=== PATIENT | female | born 1990 | race Caucasian/White ===

== ENCOUNTER 2021-07-14 11:56 | Emergency (ER) | payer BC, SELFPAY ==
[2021-07-14 12:00] VITALS: BP 116/74; PULSE 96; RESP 20; TEMP 36.7; O2SAT 100
--- NOTE | 2021-07-14 13:07 | PC.NURSE ---
Pressure irrigated with sterile saline, about 40ml, patient tolerated well.
--- NOTE | 2021-07-14 14:23 | ED.WOUNDLAC ---
HPI - Wound/Laceration General Chief Complaint: Wound/Laceration Stated Complaint: laceration to chin Time Seen by Provider: 07/14/21 13:19 Source: patient Mode of arrival: ambulatory Limitations: no limitations History of Present Illness HPI narrative: 31-year-old female Healthy Accidentally smashed herself in the face with her weed Naresh when it got stuck as she was trying to pull it down off a wall in the garage and sustained a laceration to her lower lip on the right side Did not loosen any teeth and otherwise no jaw pain Rest tetanus years ago Related Data Home Medications Medication Instructions Recorded Confirmed levothyroxine 25 mcg PO DAILY 07/14/21 07/14/21 Allergies Allergy/AdvReac Type Severity Reaction Status Date / Time No Known Allergies Allergy Verified 07/14/21 12:02 Review of Systems ENT: Denies dysphagia and Denies epistaxis Hematologic/Lymphatic: Hematologic/Lymphatic: Denies easy bleeding PMFSH Family History Family History (Updated 11/16/17 @ 13:50 by DOCTOR UNKNOWN) Other Family history of malignant neoplasm of breast Hypertension Social History Social History Alcohol intake: current Exam Const: General: healthy appearing, no acute distress and alert Orientation/consciousness: patient oriented x3 HENMT: Head: laceration Teeth and gingiva: dentition normal Other: No loose teeth There is a laceration to the right lower lip 1.5 cm on the skin surface and about 2 cm on the mucosal surface and there is a small through and through communication Does not involve the vermilion border Eyes: EOM: EOMs intact bilaterally Neck: Neck: normal visual inspection Resp: Effort & Inspection: normal respiratory effort and not labored Neuro: General: patient oriented x3 Course Vital Signs Vital signs: Vital Signs Temperature 36.7 C 07/14/21 12:00 Pulse Rate 96 07/14/21 12:00 Respiratory Rate 07/14/21 12:00 Blood Pressure 116/74 07/14/21 12:00 Pulse Oximetry 100 07/14/21 12:00 Temperature 36.7 C 07/14/21 12:00 Pulse Rate 96 07/14/21 12:00 Respiratory Rate 20 07/14/21 12:00 Blood Pressure 116/74 07/14/21 12:00 Pulse Oximetry 100 07/14/21 12:00 Procedures Laceration Laceration 1: Date: 07/14/21 Time: 13:30 Site: lip Size (cm): 4 Description: clean Depth: [id number] Local Anesthetic: lidocaine 1% and with epi Amount of anesthesia used (mL): 2 Pre-repair: wound explored and irrigated ====== Skin Level ====== Skin layer closed with: vicryl and other Size (cm): 5-0 Number of sutures: 6 Technique: simple, interrupted ====== Subcutaneous Layer ====== Size: 5-0 ====== Muscle Layer ====== Muscle layer closed with: chromic gut Size: 5-0 Number of sutures: 1 Technique: simple, interrupted ====== Tendon Layer ====== Discharge Plan Discharge Clinical Impression: Laceration of lower lip Patient Disposition: Home, Self-Care Condition: Stable Instructions: Laceration (ED) Additional Instructions: Rinse the inner laceration with diluted hydrogen peroxide or mouthwash once or twice a day Clean the skin wound gently with soap and water and put a small amount of antibiotic ointment on 2 or 3 times a day Prescriptions: No Action levothyroxine 25 mcg tablet 25 mcg PO DAILY RF: 0 Follow-up/Referrals: Abraham Cantu MD [Primary Care Provider] - (5 to 7 days for skin suture removal if desired)
[2021-07-14] MEDS: TETANUS,DIPHTHERIA,AC PERTUSSIS ADULT (0.5 ML) BOOSTRIX (14:43)
[2021-07-14 14:46] VITALS: BP 105/56; PULSE 88; RESP 18; TEMP 36.6; O2SAT 99
== END 2021-07-14 14:46 | disposition home or self-care (01) ==
PROVIDERS: Emergency Provider Emergency Medicine; PCP Emergency Medicine
DX: S01.511A Laceration without foreign body of lip, initial encounter (principal); Z23 Encounter for immunization; W22.8XXA Striking against or struck by other objects, initial encounter
CPT/HCPCS: 12052; 90471; 90715; 99282

== ENCOUNTER 2021-08-12 12:41 | Outpatient (CLI) | payer BC, SELFPAY ==
--- NOTE | ~2021-08-12 | XR_ITS ---
EXAMINATION: XR hysterosalpingogram EXAM DATE: 08/12/2021 13:18 INDICATION: Infertility. TECHNIQUE: Hysterosalpingogram was performed by Dr. Thania Romero MD with fluoroscopic gem schmitz. Radiologist Newton Rayo M.D. was present to obtain fluoroscopic images. Pulsed dose reduction fl uoroscopy was used with fluoroscopic time of 0.1 minutes. The DAP for this procedure was 0.4 Gycm2. A total of 7 images obtained for the exam. FINDINGS: Soda Dispenser radiograph demonstrates an unremarkable pelvis. Fluoroscopic images demonstrates nor mal appearing endometrial cavity which has been cannulated. Upon injection of contrast, both fallopi an tubes opacify and are normal in appearance. There is free spillage bilaterally. Uterus is withou t evidence of synechia. IMPRESSION: Patent fallopian tubes. Reviewed, dictated and finalized at location A. IMPRESSION: Patent fallopian tubes.
== END 2021-08-12 12:42 | disposition home or self-care (01) ==
LOC: ANHIMG 12:47
PROVIDERS: PCP Emergency Medicine; Visit Provider Obstetrics & Gynecology Gynecology
DX: Z31.41 Encounter for fertility testing (principal)
CPT/HCPCS: 58340; 74740; Q9966

== ENCOUNTER → 2022-10-10 11:06 | Outpatient (CLI) | payer BC, SELFPAY ==
--- NOTE | ~2022-10-10 | US_ITS ---
EXAMINATION: US OB transvaginal DATE: 10/10/2022 11:48 INDICATION: Evaluate viability. TECHNIQUE: Real-time transabdominal and transvaginal obstetric ultrasound. FINDINGS: No prior studies for comparison. The uterus measures 7.8 x 4.3 x 6 cm. There is an intrauterine gestational sac. Yolk sac is visualize d. pole not definitely identified. Mean sac diameter measures 1.06 cm corresponding to 5 week 1 day gestation. The ovaries are within normal limits. No free fluid in the pelvis. IMPRESSION: 1. Intrauterine gestational sac containing a yolk sac corresponding to 5 week 1 day gestation (EDC ). No pole is identified yet, likely due to early gestational age. Recommend follow-up with serial quantitative beta-hCG levels and ultrasound as clinically indicated. Reviewed, dictated and finalized at location A. S SERVICE COORDINATOR IMPRESSION: 1. Intrauterine gestational sac containing a yolk sac corresponding to 5 week 1 day gestation (EDC 06/11/2023). No pole is identified yet, likely due to early gestational age. Recommend follow-up with serial quantitative beta-hCG l evels and ultrasound as clinically indicated.
== END ==
PROVIDERS: PCP Obstetrics & Gynecology Gynecology; Visit Provider Obstetrics & Gynecology Gynecology
DX: O36.80X0 Pregnancy with inconclusive fetal viability, not applicable or unspecified (principal); Z3A.01 Less than 8 weeks gestation of pregnancy
CPT/HCPCS: 76817

== ENCOUNTER → 2022-10-21 12:45 | Outpatient (CLI) | payer BC, SELFPAY ==
--- NOTE | ~2022-10-21 | US_ITS ---
Pelvic ultrasound. Clinical History: First trimester , assess viability Technique: Realtime transabdominal and transvaginal scanning of the pelvis was performed. Color flow Doppler and Doppler spectral analysis were performed. Findings: The uterus is anteverted, and contains an intrauterine gestation. [place]-rump length of 1.1 cm corresponds to an estimated gestational age of 7 weeks 1 day. heart rate is 154 bpm. The right ovary measures 3.1 x 1.9 x 3.0 cm. No significant right ovarian or adnexal mass is seen. The left ovary measures 2.5 x 1.8 x 1.4 cm. No significant left ovarian or adnexal mass is seen. Vascular flow present in both ovaries on Doppler spectral analysis. There is no evidence of free fluid in the cul de sac. Impression: Live intrauterine gestation with estimated gestational age of 7 weeks 1 day. heart rate is 154 bpm. Reviewed, dictated and finalized at [facility]. ING CARRIER Impression: Live intrauterine gestation with estimated gestational age of 7 weeks 1 day. Fe clover heart rate is 154 bpm.
== END ==
PROVIDERS: PCP Obstetrics & Gynecology Gynecology; Visit Provider Obstetrics & Gynecology Gynecology
DX: O36.80X0 Pregnancy with inconclusive fetal viability, not applicable or unspecified (principal); Z3A.01 Less than 8 weeks gestation of pregnancy
CPT/HCPCS: 76801

== ENCOUNTER 2023-06-15 10:46 | Outpatient (RCR) | payer BC, SELFPAY ==
--- NOTE | 2023-06-09 13:03 | PC.NURSE ---
1302- Dr. Whitlock notified of NST, GLORIA and EFW. Okay to discharge.
[2023-06-09 13:04] VITALS: BP 107/69
--- NOTE | ~2023-06-15 | US_ITS ---
EXAMINATION: US OB limited DATE: 06/15/2023 12:02 INDICATION: Postdates. TECHNIQUE: Real-time ultrasound of the pelvis was performed. COMPARISON: Ultrasound 06/09/2023 FINDINGS: There is a single fetus in vertex presentation. The placenta is anterior. heart rate is 141 be ats per minute (bpm). The amniotic fluid index is 12.3 cm, which is normal. IMPRESSION: 1. Single living fetus in vertex presentation. Reviewed, dictated and finalized at location A.
--- NOTE | ~2023-06-15 | US_ITS ---
EXAMINATION: US OB follow up DATE: 06/09/2023 12:39 INDICATION: Postdates. TECHNIQUE: Real-time ultrasound of the pelvis was performed. COMPARISON: Ultrasound 10/21/2022 FINDINGS: There is a single living fetus in vertex presentation. The placenta is anterior. heart rate is 138 beats per minute (bpm). The amniotic fluid index is 11.3 cm, which is normal. The following biometric data were obtained: Biparietal diameter (BPD): 9.4 cm; head circumference (HC): 34.7 cm; abdominal circumference (AC): 35 .5 cm; femur length (FL): 7.8 cm. These measurements are concordant. Estimated weight is 3788 g +/- 568 g, which correlates with the 62nd percentile when 06/08/23 is used as estimated date of delivery. As single measurements, these parameters are each equal to the following estimated gestational ages: BPD: 38 weeks 1 days. HC: 40 weeks 1 days. AC: 39 weeks 3 days. FL: 39 weeks 6 days. estimated gestational age based solely on measurements from this exam is 39 weeks 3 days +/- 2 weeks 5 days. IMPRESSION: 1. Single living fetus in vertex presentation. 2. Estimated weight is 3788 g +/- 568 g, which correlates with the 62nd percentile when 06/08/23 is used as estimated date of delivery. This date was set by ultrasound on 10/21/2022. Reviewed, dictated and finalized at location A.
[2023-06-15 11:00] VITALS: BP 116/72; PULSE 91
[2023-06-15 11:15] VITALS: BP 111/73; PULSE 94
[2023-06-15 12:20] VITALS: BP 107/69; PULSE 94
== END 2023-08-12 11:49 | disposition home or self-care (01) ==
LOC: ANHOBOP 10:46
PROVIDERS: Visit Provider Obstetrics & Gynecology
DX: O48.0 Post-term pregnancy (principal); Z3A.40 40 weeks gestation of pregnancy; Z3A.41 41 weeks gestation of pregnancy
CPT/HCPCS: 59025; 76815; 76816

== ENCOUNTER 2023-06-22 15:55 | Inpatient (IN) | payer BC, SELFPAY ==
[2023-06-22] VITALS (14 sets, daily range): BP systolic 108–138; BP diastolic 63–97; PULSE 70–84; TEMP 36.8–37.1; BMI 31.1
--- NOTE | 2023-06-22 16:38 | LDADM ---
This patient, Izzy Quintana, was admitted to Labor/Delivery/Recovery 108 on 06/22/23 at 15:55. Plans for labor, pain management and were discussed with patient. Patient/family oriented to hospital policies and general routines including ID bracelet, bed and alarms, visiting hours, pain management, procedures, bathroom and other care routines, personal items, smoking policy, room service/diet and guest tray routines, security routines, and visiting hours. Patient/Family are encouraged to report perceived risks to care and to ask questions if they do not understand what they are told or what they should do. See OBIX for further documentation.
[2023-06-22 16:39] LABS: Basophils Percent Auto 0.1 % (0.2-1.2); Eosinophils Percent Auto 0.4 % (0-4.4); Hematocrit 34.6 % (37.0-47.0); Hemoglobin 11.7 g/dL (12.0-15.0); Immature Granulocyte Absolute 0.07 K/mm3 (0.00-0.031); Immature Granulocyte Percent A 0.9 % (0-0.5); Lymphocytes Absolute Auto 2.01 K/mm3 (0.9-3.2); Lymphocytes Percent Auto 24.4 % (18.3-44.2); Mean Corpuscular HGB Conc 33.8 g/dl (32-36); Mean Corpuscular Hemoglobin 28.9 pg (26-34); Mean Corpuscular Volume 85.4 fl (80-100); Mean Platelet Volume 12.1 fl (7.4-10.4); Monocytes Absolute Auto 0.7 K/mm3 (0.1-0.6); Neutrophils Absolute Auto 5.5 K/mm3 (1.3-6.7); Neutrophils Percent Auto 66.2 % (45.5-73.1); Platelet Count Result 136 k/mm3 (150-375); Red Blood Count 4.05 M/mm3 (4.2-5.4); Red Cell Distribution Width 13.3 % (11.5-14.5); White Blood Count 8.2 K/mm3 (4.5-10.0)
[2023-06-22] MEDS: AMPICILLIN 2 GM/NS 100 ML 2 GM/100 ML BAG IVPB (17:13)
[2023-06-22] MEDS: LACTATED RINGERS 1,000 ML 125 ML IV CONT (17:13)
[2023-06-22] MEDS: DINOPROSTONE 10 MG VAG INSERT VAGINAL (17:14)
[2023-06-22] MEDS: AMPICILLIN 1 GM/NS 50 ML 1 GM/50 ML BAG IVPB (21:40)
[2023-06-22] MEDS: fentaNYL CITRATE INJ (*CRX) 100 MCG/2 ML VIAL 50 MCG IV PUSH (23:49)
[2023-06-23] VITALS (235 sets, daily range): BP systolic 98–221; BP diastolic 47–203; PULSE 54–259; RESP 18–20; TEMP 36.3–37.7; O2SAT 95–100
[2023-06-23] MEDS: AMPICILLIN 1 GM/NS 50 ML 1 GM/50 ML BAG IVPB ×3 (01:15→09:22)
[2023-06-23] MEDS: fentaNYL CITRATE INJ (*CRX) 100 MCG/2 ML VIAL IV PUSH (01:15)
--- NOTE | 2023-06-23 02:52 | WPDANESEPPF ---
Anes - Initial Pre Proc Eval Procedure: Labor epidural Date/Time: 06/23/23 02:52 Surgeon: Dm Whitlock MD Pre Op Diagnosis: Labor pain Pre Op Diagnosis: Induction of Labor Patient Data Age: 33 Gender: F Height: 1.65 m Weight: 85 kg Last Vital Signs Temp 36.3 C L 06/23/23 01:40 Pulse 71 06/23/23 02:14 BP 125/86 06/23/23 02:14 O2 Del Method Room Air 06/22/23 16:36 Allergies Allergy/AdvReac Type Severity Reaction Status Date / Time No Known Allergies Allergy Verified 07/14/21 12:02 Home Medications Medication Instructions Recorded Confirmed Type levothyroxine 50 mcg tablet 50 mcg PO DAILY 05/09/23 05/09/23 History (Synthroid) prenat.vits,qiana,rdf-dxip-pxbxv 1 tablet PO DAILY 05/09/23 06/22/23 History Laboratory Tests 06/22/23 16:18 WBC 8.2 K/mm3 (4.5-10.0) RBC 4.05 L M/mm3 (4.2-5.4) Hgb 11.7 L g/dL (12.0-15.0) Hct 34.6 L % (37.0-47.0) MCV 85.4 fl (80-100) MCH 28.9 pg (26-34) MCHC 33.8 g/dl (32-36) RDW 13.3 % (11.5-14.5) Plt Count 136 L k/mm3 (150-375) MPV 12.1 H fl (7.4-10.4) Immature Gran % (Auto) 0.9 H % (0-0.5) Neut % (Auto) 66.2 % (45.5-73.1) Lymph % (Auto) 24.4 % (18.3-44.2) [place] % (Auto) 8.0 % (2.6-8.5) Eos % (Auto) 0.4 % (0-4.4) Baso % (Auto) 0.1 L % (0.2-1.2) Lymph # (Auto) 2.01 K/mm3 (0.9-3.2) [place] # (Auto) 0.7 H K/mm3 (0.1-0.6) Eos # (Auto) 0.0 K/mm3 (0-0.3) Baso # (Auto) 0.0 K/mm3 (0.0-0.1) Abs Immat Gran (auto) 0.07 H K/mm3 (0.00-0.031) Absolute Neuts (auto) 5.5 K/mm3 (1.3-6.7) Absolute Nucleated RBC 0.0 K/mm3 (0.0-0.012) Nucleated RBC % 0.0 % (0.0-0.2) RPR Pending Blood Type O Positive Antibody Screen Negative Patient hx anesthesia problems: none Family hx anesthesia problems: none Results Review: All pre-operative results and documents have been reviewed as part of the pre-operative evaluation. PENDING SALE TO [facility] Family History Family History Grandparent Hypertension Grandparent Family history of malignant neoplasm of breast Social History Social History Smoking status: Never smoker Alcohol intake: current Substance use: never Lack of Transportation: No Lack of Food: Never True Current Housing: I Have Housing Concerned About Future Housing: No Difficulty Paying Gas/Electric Bills: No Difficulty Paying for Meds: No Currently Unemployed: No Education: Bachelor's Degree Difficulty w/ Childcare or Family Care: No Spiritual care concerns: No Anes - Eval Final PreProcedure Day of Procedure 06/23/23 02:52 Patient weight: normal Heart: regular rate and rhythm Lungs: clear to auscultation ASA classification: II Results Review: All pre-operative results and documents have been reviewed as part of the pre-operative evaluation. Informed Consent: The patient's anesthetic plan and its attendant risks and benefits were discussed with the patient/family/POA. Questions were solicited and answers provided to the satisfaction of the patient/family/POA.
--- NOTE | 2023-06-23 03:15 | WPDANESEPN ---
Anes - Epidural Procedure Note Date/Time: 06/23/23 03:15 Consent: I have discussed with the patient/family/POA, the placement of an epidural catheter and the use of epidural narcotic/local anesthetic for labor analgesia and/or postoperative pain management, including associated potential risks, benefits, complications and side effects. I have discussed alternative methods of labor analgesia and/or postoperative pain management. The patient/family/POA, understand(s) and wish(es) to proceed with epidural narcotic/local anesthetic for labor analgesia and/or postoperative pain management. Time-Out: A pre-procedural Time-Out was completed immediately before starting the procedure and confirmed: Patient Identification, Site, Procedure, Patient Position and the Availability of Requisite Equipment. Clinical Indications: Labor Pain Epidural Insertion Note Patient position: sitting Skin prep: chlorhexidine and sterile drape Needle: 18g Tuohy-Schliff Catheter: 20g Unstyleted Technique: Loss of resistance. Level of insertion: L4/5 Catheter skin mary (cm): 9 Length in epidural space (cm): 4 Skin anesthesia: lidocaine 1% Test dose: 1.5% Lidocaine with 1:[id number] Epi, negative for subarachnoid Inj and negative for intravascular Inj Time of test dose: 03:04 Observations: tolerated well Complications: none
[2023-06-23] MEDS: OXYTOCIN 30 UNITS/NS 500 ML 30 UNITS/500 ML BAG 6 UNITS IV CONT (07:47)
--- NOTE | 2023-06-23 07:54 | WPDOBADMIT ---
Obstetrics - Admit Note Admission Note: record reviewed. Additions to the history and/or subsequent changes in the physical findings follow. 33 y/o G1 at 42 1/7 weeks gestation here for induction of labor. Cervidil overnight, had SROM of clear fluid. Now comfortable with epidural. GBS pos, receiving ampicillin. 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 AVSS NST reactive TOCO: contractions every 5 min ABD soft, nontender, gravid, vertex EXT nontender Cervix 4/100/-1. IUPC placed. Clear fluid noted. BLE neg. A: IUP at term. GBS pos. P: Oxytocin. Ampicillin. Anticipate .
[2023-06-23] MEDS: LACTATED RINGERS 1,000 ML 125 ML IV CONT (12:23)
[2023-06-23] MEDS: miSOPROStol 200 MCG TABLET 1000 MCG (14:42)
--- NOTE | 2023-06-23 14:46 | PM.OBPRVD ---
OB - Delivery Note Procedure Delivery date: 06/23/23 Procedure: Induction of labor with Events: Positive Group B Strep (GBS) Induction method: Per Cervidil Protocol Delivery augmentation: Rupture of Membranes and Pitocin Delivery monitor: External FHT, External Uterine and Internal Uterine Route of delivery: Laceration Description: Perineal - 2nd Degree Delivery repair: vicryl (3-0) Specimen: Yes (Cord blood) Quantitative Blood Loss (ml): 240 Anesthesia type: Epidural Disposition: PACU Complications: None Narrative: 33 y/o G1 at 42 1/7 weeks gestation who presented to the hospital for induction of labor. Cervidil was placed overnight and withdrawn the next morning. She received ampicillin for GBS colonization. Oxytocin was administered intravenously. Amniotomy was performed with return of clear fluid. She received an epidural for pain control. Her labor progressed and her cervix dilated completely. She pushed with good effort and delivered the 's head to the perineum, followed by the body. The nose and mouth were bulb suctioned. After a delay, the cord was clamped and cut. The was handed off the field. Cord blood was collected. The placenta delivered spontaneously and was grossly normal in appearance. The usual 3 vessel cord was noted. A second degree midline perineal laceration was sustained. This was reapproximated using 3 0 Vicryl in the usual layered fashion. Excellent hemostasis resulted as did excellent reapproximation of the normal anatomy. Needle and instrument counts were correct. The patient was taken to recovery room in stable condition. The infant went to the nursery in stable condition. I was present and scrubbed for the entire delivery. Baby Date of : 06/23/23 Time of : 14:26 Weeks of gestation at delivery: 42 Infant gender: Male Weight (pounds): 8 Weight (ounces): 10 presentation: vertex position: Left Occiput Anterior Placenta delivery description: Spontaneous and Normal Configuration Cord Vessel Description: 3 Vessels and Delayed Cord Clamping score one minute: 9 score five minutes: 9
--- NOTE | 2023-06-23 14:46 | PM.OBDSVD ---
DS: Admitting Diagnosis Discharge Date 06/25/23 Admitting Diagnosis IUP at 42 1/7 weeks DS: Discharge Diagnosis Discharge Diagnosis (1) (normal spontaneous vaginal delivery): Code(s): O80 - Encounter for full-term uncomplicated delivery Status: Acute OB - DS: Summary OB Procedures : None OB Procedures Intrapartum: Spontaneous Vag Delivery and GBS prophylaxis OB Procedures: : None Time Spent with Patient Time attestation: Total time spent providing and/or coordinating discharge services: DS: Data Data Completed and Pending Labs on day of discharge: Labs from last 24 hours 06/22/23 16:18 WBC 8.2 RBC 4.05 L Hgb 11.7 L Hct 34.6 L MCV 85.4 MCH 28.9 MCHC 33.8 RDW 13.3 Plt Count 136 L MPV 12.1 H Immature Gran % (Auto) 0.9 H Neut % (Auto) 66.2 Lymph % (Auto) 24.4 [place] % (Auto) 8.0 Eos % (Auto) 0.4 Baso % (Auto) 0.1 L Lymph # (Auto) 2.01 [place] # (Auto) 0.7 H Eos # (Auto) 0.0 Baso # (Auto) 0.0 Abs Immat Gran (auto) 0.07 H Absolute Neuts (auto) 5.5 Absolute Nucleated RBC 0.0 Nucleated RBC % 0.0 RPR Pending Blood Type O Positive Antibody Screen Negative Discharge Plan Discharge Attending physician on discharge: Dm Whitlock Discharging Clinician: Dm Whitlock Patient Disposition: Home, Self-Care Activity: pelvic rest Diet: regular Discharge Instructions: Call or return if temperature above 100.4? F, increased abdominal pain, increased vaginal bleeding or any new problems. Stand Alone Forms: General Discharge Information Follow-up/Referrals: Dm Whitlock MD [Physician] - 6 Weeks Discharge Medications: New ibuprofen 600 mg tablet 600 mg PO Q6H PRN (Reason: cramps) Qty: 30 0RF Continued #2 Tablet 1 tablet PO DAILY levothyroxine [Synthroid] 50 mcg Tablet 50 mcg PO DAILY Date of admission: 06/22/23 15:55 Primary Care Provider: PHYSICIAN,TELEVISION SERVICER Admitting Provider: Dm Whitlock Attending physician on admission: Dm Whitlock Condition: Stable
[2023-06-23 14:55] LABS: Rapid Plasma Reagin Non-Reactive (NonReactive)
[2023-06-23] MEDS: OXYTOCIN 30 UNITS/NS 500 ML 30 UNITS/500 ML BAG 125 UNITS IV CONT (15:02)
[2023-06-23] MEDS: WITCH HAZEL 40 PADS 1 PAD TOPICAL (15:44)
[2023-06-23] MEDS: IBUPROFEN 600 MG TABLET PO (15:44)
[2023-06-23] MEDS: BENZOCAINE 20% AER SPR (*SP) 56 GM CAN 1 SPRAY TOPICAL (15:44)
[2023-06-24 00:09] VITALS: BP 110/73; PULSE 96; RESP 18; TEMP 37.6
[2023-06-24] MEDS: IBUPROFEN 600 MG TABLET PO ×2 (03:44→13:57)
[2023-06-24] MEDS: ACETAMINOPHEN 325 MG TABLET 650 MG PO (03:45)
[2023-06-24 04:00] VITALS: BP 117/76; PULSE 78; RESP 18; TEMP 36.7
[2023-06-24 05:39] LABS: Hematocrit 30.7 % (37.0-47.0); Hemoglobin 10.2 g/dL (12.0-15.0)
[2023-06-24 07:20] VITALS: BP 97/63; PULSE 72; RESP 16; TEMP 36.1; O2SAT 98
[2023-06-24] MEDS: MULTIVIT/MIN/PREN/FOL AC/IRON TABLET 1 TAB PO (08:48)
[2023-06-24] MEDS: DOCUSATE SODIUM 100 MG CAPSULE PO ×2 (08:48→16:51)
[2023-06-24 12:35] VITALS: BP 100/60; PULSE 77; RESP 16; TEMP 36.1; O2SAT 99
--- NOTE | 2023-06-24 14:53 | PC.NURSE ---
[id number] Introductions were made, then consulted with patient to assess needs related to . Mother led the conversation with her?plans to feed?her infant and the?experience so far. RN encouraged [id number] and stimulating infant with changing position along with massage touch to wake to breastfeed. Resources provided for inpatient and outpatient services with the mom/baby guide and name written on the white board. Mother voiced understanding of information and will call if there is a request for assistance. 1005 - Infant is stimulated for wakefulness and reviewed techniques of holding infant and supporting the breast. Nipple shield was provided to mother at the first feeding downstairs due to mother having low profile nipples. Mother state she has difficulty with the nipple shield staying on and has to the right breast not effectively latched to the nipple shield and the nipple shield not applied correctly. Reviewed good handwashing, cleaning the nipple shield and how to apply the nipple shield correctly. Discussed with mom the nipple shield precautions, possible complications associated with the risks and benefits. Mother states she has used the nipple shield through the night. Reviewed practicing with a nipple shield, then without and how to protect the milk supply and production. Mother was educated with demonstrating hand expression to encourage infant to breastfeed. Infant is very gassy and gaggy. Infant spit up clearing fluid and burped quite a bit. Mom voiced understanding of the importance of hand expression, nipple stimulation and initiating a pumping schedule if continues to nurse with the shield. Reviewed positioning, supporting the breast to facilitate a deep latch, asymmetrical latch (off-center), leading with the chin with a big, open, wide gape and body close to mother. latched optimally to the left breast in football position. Education given to mother of how to visualize suck/swallow ratios and listen for drinking at the breast. Infant was able to maintain latch without discomfort to mother. Nipple care reviewed with optimal latch and good positioning. Reviewed good handwashing when or touching the breast/nipples to prevent infection. Resources used to facilitate learning were used with the tool, mom and baby guide. Mother voiced understanding of skin to skin, stimulating with massage touch, responsive feedings, hand expressed colostrum, talking to infant to encourage if it has been 2 -2.5 hours since the start of the last , to call if does not latch, or if there is discomfort with . Parents voiced understanding of information, demonstrated learning and will call if there is a request for assistance. Reported to the primary RN. [id number] Purposefully rounded to assess for needs. Reviewed working with , supporting breast and how to protect the nipples with an optimal deep latch, good positioning, and good hand washing. Encouraged understanding the benefits of skin to skin, stimulating with hand expressing colostrum and finger feeding, reviewed positioning, alignment, supporting breast, off-centered (asymmetrical latch) and leading with the chin with big, open, wide gape. RN worked with the dyad and infant will suckle with the nipple shield but not without. Infant attempts to suckle when there is a stimulant in the front of his mouth and doesn't demonstrate the ability at this session to bring the breast into his mouth. Mother has visible signs of having a good first milk. Breast pump provided due to ineffective and nipple shield use. Instructions given on cleaning, care, usage, that there should be no pain, pumping schedule for milk production, collection, and storage of human milk. Parents are encouraged to record pumping schedule on the feeding sheet. Patient was assessed for correct placement, flange size, to pump for c
[2023-06-24] MEDS: WITCH HAZEL 40 PADS 1 PAD TOPICAL (15:00)
[2023-06-24] MEDS: BENZOCAINE 20% AER SPR (*SP) 56 GM CAN 1 SPRAY TOPICAL (15:00)
--- NOTE | 2023-06-24 15:12 | PM.OBPNVD ---
OB - PN: Subj Subjective Date/time seen: 06/24/23 15:12 Narrative: Pain OK. Would like circumcision for son. OB - PN: Obj Data Labs 06/24/23 03:46 Labs: Laboratory Results - last 24 hr 06/24/23 03:46 Hgb 10.2 L Hct 30.7 L OB - PN A/P Plan Comments: A: PPD#1, doing well. P: Reviewed circ. Routine care. Exam Psych: Other: AVSS ABD soft, nontender, fundus firm EXT nontender
[2023-06-24 16:26] VITALS: BP 124/78; PULSE 69; RESP 16; TEMP 36.9
[2023-06-24 19:31] VITALS: BP 107/64; PULSE 70; RESP 18; TEMP 36.7
[2023-06-25 07:35] VITALS: BP 118/71; PULSE 85; RESP 18; TEMP 36.7; O2SAT 99
--- NOTE | 2023-06-25 08:59 | PM.OBPNVD ---
OB - PN: Subj Subjective Date/time seen: 06/25/23 08:59 Narrative: Pain OK. Would like to go home. OB - PN: Obj Data Labs 06/24/23 03:46 OB - PN A/P Plan Comments: A: PPD#2, doing well. P: Home to f/u 6 weeks. Exam Psych: Other: AVSS ABD soft, nontender, fundus firm EXT nontender
[2023-06-25] MEDS: MULTIVIT/MIN/PREN/FOL AC/IRON TABLET 1 TAB PO (09:06)
[2023-06-25] MEDS: DOCUSATE SODIUM 100 MG CAPSULE PO (09:07)
[2023-06-25] MEDS: IBUPROFEN 600 MG TABLET PO (09:07)
[2023-06-25] MEDS: MEASLES,MUMPS,RUBELLA VACCINE 0.5 ML VIAL SUB-Q (12:28)
--- NOTE | 2023-06-25 14:11 | PC.NURSE ---
[id number] Mother led the conversation with her experience and plan to feed her so far and her ability to independently latch optimally without discomfort. Reminded parents to use good handwashing technique to prevent infection. Mother is feeding appropriately for growth of and understands stimulating to eat if needed. Infant has had appropriate feedings in the last 24 hours meets the outcomes for weight, output and jaundice at this time. Mother states she is confident to continue effectively her infant at home, when to call for assistance and denies any additional assistance or education at this time. Reinforced understanding of milk production, transition of milk, signs of adequate intake, transition of stool, prevention/relief of engorgement, plugged ducts, mastitis, responsive watching for feeding cues, the different methods of stimulating to breastfeed 2-3 hours after the start of the last feeding, community resources and when to call a provider using the resource of the mom and baby guide. Mother voiced understanding of the education shared. Reported to the primary RN.
--- NOTE | 2023-06-25 14:15 | PC.NURSE ---
[id number] Mother led the conversation with her experience, plan to feed her so far and her decision to pump and feed her . Mother is supplementing until her milk comes to full volume. Reminded parents to use good handwashing and pump cleaning to prevent infection. Mother is feeding appropriately for growth of infant and to feed on demand. has had appropriate feedings in the last 24 hours meets the outcomes for weight, output and jaundice at this time. Mother states she is confident to continue feeding her infant at home, when to call for assistance and denies any additional assistance or education at this time. Reinforced understanding of milk production, transition of milk, signs of adequate intake, transition of stool, prevention/relief of engorgement, plugged ducts, mastitis, watching for feeding cues, the different methods of stimulating infant to feed, and when to call a provider using the resource of the mom and baby guide. Mother voiced understanding of the education shared. Reported to the primary RN.
== END 2023-06-25 12:45 | disposition home or self-care (01) | DRG 806 ==
LOC: ANHLDR 16:00 → ANHOB2 06-23 17:30
PROVIDERS: Admitting Provider Obstetrics & Gynecology; Visit Provider Obstetrics & Gynecology
DX: O99.824 Streptococcus B carrier state complicating childbirth (principal); O98.32 Other infections with a predominantly sexual mode of transmission complicating childbirth; Z37.0 Single live birth; Z3A.42 42 weeks gestation of pregnancy; O48.1 Prolonged pregnancy; A60.09 Herpesviral infection of other urogenital tract
CPT/HCPCS: 36415; 85014; 85018; 85025; 86592; 86850; 86900; 86901; 90710; A9270; J0290; J2590; J2795; J3010; J7120